=== PATIENT | male | born 1985 | race Caucasian/White ===

== ENCOUNTER 2019-01-20 23:05 | Emergency (ER) | payer OTHER ==
[~2019-01-20] VITALS: Ht 188 cm; Wt 99.8 kg
[~2019-01-20 23:05] MED LIST: ATIVAN1 MG PO
--- OUTSIDE RECORDS SUMMARY | 2019-01-20 23:08 | XMS ---
PreManage Notification: DEBORAH CARDOZO Security [employer] As[employer]er Events No recent Security Events currently on file [facility] There are no care providers on record at this time. Xochitl has no Care Guidelines for this patient. Alix VISIT COUNT (12 MO.) 2 [facility] TOTAL 2 NOTE: Visits indicate total known visits. ED/UCC VISIT TRACKING (12 MO.) 01/20/2019 23:06 [facility] [place] TYPE: Emergency COMPLAINT: - MEDICAL CLEARANCE 02/18/2018 20:[address] [facility] [place] TYPE: Emergency COMPLAINT: - MEDICAL CLEARANCE DIAGNOSES: - Anxiety disorder, unspecified INPATIENT VISIT TRACKING (12 MO.) No inpatient visits to display in this time frame [email or web address]
== END 2019-01-21 02:13 | disposition home or self-care (01) ==
LOC: ED 23:05
DX: F29 Unspecified psychosis not due to a substance or known physiological condition (principal); F41.9 Anxiety disorder, unspecified
CPT/HCPCS: 80053; 80176; 81001; 84443; 85025; 99284; G0480

== ENCOUNTER 2019-06-21 22:46 | Emergency (ER) | payer OTHER ==
[~2019-06-21] VITALS: Ht 188 cm; Wt 99.8 kg
--- OUTSIDE RECORDS SUMMARY | 2019-06-21 22:48 | XMS ---
PreManage Notification: DEBORAH CARDOZO Security Police Aide Events No recent Security Events currently on file CRITERIA MET - Group Notification - [facility] - Has Care Guidelines CARE PROVIDERS There are no care providers on record at this time. Guidelines Source: [facility] [place] Guidelines Date: 01/22/2019 Care Coordination: Receives mental health services with [facility].\T\nbsp; Please contact [facility] for mental health concerns.\T\nbsp; Deanna/Prabhu Brewer:\T\nbsp; \T\nbsp; All: [phone]. Care History Medical/Surgical 01/21/2019 [facility] CASE MANAGEMENT REFERRAL MADE- PATIENT HAS [facility] AND NO PCP. E.D. VISIT COUNT (12 MO.) 2 [facility] TOTAL 2 NOTE: Visits indicate total known visits. 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
== END 2019-06-22 01:42 | disposition home or self-care (01) ==
LOC: ED 22:46
DX: R45.4 Irritability and anger (principal); F20.9 Schizophrenia, unspecified; F41.9 Anxiety disorder, unspecified
CPT/HCPCS: 80053; 80176; 81001; 84443; 85025; 99284; G0480